=== PATIENT | male | born 1950 | race Caucasian/White ===

== ENCOUNTER 2016-11-17 22:21 | Emergency (ER) | payer MEDICARE, MEDICAID | END 2016-11-18 | disposition home or self-care (01) | LOC: D.ER 22:21 | DX: S01.81XA Laceration without foreign body of other part of head, initial encounter (principal); W45.8XXA Other foreign body or object entering through skin, initial encounter; Y93.89 Activity, other specified; Y92.019 Unspecified place in single-family (private) house as the place of occurrence of the external cause; M06.9 Rheumatoid arthritis, unspecified; J44.9 Chronic obstructive pulmonary disease, unspecified ==

== ENCOUNTER 2018-07-07 16:35 | Inpatient (IN) | payer MEDICARE ==
[~2018-07-07] VITALS: Ht 182.9 cm; Wt 84.1 kg
--- NOTE | ~2018-07-07 | OP ---
PATIENT NAME: WILLIS BLOCK MEDICAL RECORD: [id number] :50 LOCATION:[facility] ADMISSION DATE:07/07/18 SURGEON: JT PATEL MD DATE OF OPERATION: 07/07/2018 PROCEDURES: 1. PTCA stent LAD. 2. Left heart catheterization. 3. Selective coronary angiography. 4. Left ventriculogram. 5. Intraaortic balloon pump placement. INDICATION: Acute myocardial infarction, cardiogenic shock. PROCEDURE IN DETAIL: After informed consent was obtained and after a detailed description of the risks, benefits as well as alternative therapies, emergent decision was made to proceed with a cardiac intervention. FINDINGS: The left ventriculogram was performed in standard 30-degree BRAUN view, reveals anteroapical hypokinesis, ejection fraction 35% to 40%. SELECTIVE CORONARY ANGIOGRAPHY: 1. Left main is with no significant angiographic disease. 2. Left anterior descending is acutely totally occluded proximally. 3. Left circumflex has a relatively large first obtuse marginal that has 80-85% stenosis in the proximal vessel, otherwise the circumflex is free of disease. 4. Right coronary has no significant disease throughout. PTCA STENT OF THE LAD: The stents used were 3.5 x 30 and 3.0 x 30 both Integrity stents. Result was 0% residual stenosis, went from DAVID 0 flow to DAVID 2 flow. OVERALL IMPRESSION: Successful percutaneous transluminal coronary angioplasty stent of the left anterior descending for an acute myocardial infarction going from 100% initial stenosis to 0% residual stenosis at the end of the case due to the continued poor DAVID flow, intraaortic balloon pump counterpulsation was undertaken. This was positioned in the distal aorta. The balloon pumping was undertaken at 1:1. TRANSINT:[id number] Voice Confirmation ID: [id number] DOCUMENT ID: [id number] JT PATEL MD at 0923 CC: [id number] DICTATION DATE: 07/07/181800 MARBLE CLEANER: 07/07/181945 DIS IN 07/07/18 [facility] [address] [id number]
--- NOTE | ~2018-07-07 | HP ---
PATIENT: WILLIS BLOCK MEDICAL RECORD: [id number] ACCOUNT: [id number] LOCATION:[facility] : 50 ADMISSION DATE: 07/07/18 PCP: MIRLANDE IRAHETA HISTORY AND PHYSICAL EXAMINATION DIAGNOSES: 1. Cardiac arrest. 2. Acute anterior myocardial infarction. 3. Coronary disease. HISTORY: This is a gentleman who supposedly was at home, had chest pain, called 911. Paramedics arrived. He was diaphoretic but conscious, and within a minute, he had a VF arrest. He received one shock in the field along with CPR, was transported to the hospital. He had a second episode of VF arrest while in the Emergency Room, received one more shock. He is now on Levophed, bicarb drip, and lidocaine. He is in sinus rhythm. The EKG is compatible with an acute anterior myocardial infarction. PHYSICAL EXAMINATION: GENERAL APPEARANCE: Well-nourished, well-developed, appears stated age. Level of distress, comfortable. PSYCHIATRIC: Mental status, alert, normal affect. Orientation, oriented to time, place and person. EYES: Lids and conjunctiva, noninjected. No discharge, no pallor. ENT: Lips, teeth, gums, normal dentition. Oropharynx, no cyanosis, no pallor. NECK: Carotid arteries, bilateral normal upstroke, no bruits, no thrills. JUGULAR VEINS: No jugular venous pressure or distention. CERVICAL LYMPH NODES: Nontender, nonenlarged. THYROID: Not enlarged. Nontender. No nodules. LUNGS: Respiratory effort, unlabored. CHEST: Normal curvature. No thoracic deformity. No chest wall tenderness. Percussion, resonant. Auscultation, clear. No wheezes, no rales, no rhonchi. CARDIOVASCULAR: Precordial exam, nondisplaced. No heaves or pericardial thrills. Rate and rhythm, regular. Heart sounds, normal S1, normal S2. No S3, no gallop, no rub. Systolic murmur, not heard. Diastolic murmur, not heard. EXTREMITIES: No cyanosis, no edema. Peripheral pulses, full and equal in all extremities, except as noted. No bruits appreciated. ABDOMEN: Soft, nondistended. Normal aorta. No bruit. Nontender. No masses. Liver, nontender, no hepatomegaly. Spleen, nontender, no splenomegaly. MUSCULOSKELETAL: No joint tenderness. No joint swelling. No erythema. NEUROLOGICAL: Normal gait, normal strength, normal tone. SKIN: Warm and dry. OVERALL IMPRESSION: Acute anterior myocardial infarction with cardiac arrest. We will proceed with emergent coronary angiography. Further care depends upon findings of the angiography. TRANSINT:[id number] Voice Confirmation ID: [id number] DOCUMENT ID: [id number] HISTORY AND PHYSICAL [id number] WILLIS BLOCK JEFFREY MD at 0923 CC: [id number] DICTATION DATE: 07/07/18 173 MAIL OPENER: 07/07/18 175 DIS IN 07/07/18 [id number] [place] [address]
--- NOTE | ~2018-07-07 | HEMODYNAMI ---
PATIENT:WILLIS BLOCK MEDICAL RECORD: [id number] : 50 LOCATION:[facility] ADMISSION DATE: 07/07/18 Generatedon:07/07/201818:09 Patient name: WILLIS BLOCK Patient #: [id number] SSN: : 1950 Date of study: 07/07/2018 Page: Of Hemodynamic Procedure Report Patient Data Patient Demographics Procedure consent was obtained First Name: WILLIS Gender: Male Last Name: MCKAYLA : 1950 [facility] Initial: ANISH Age: 68 year(s) Patient #: [id number] Race: Unknown Additional ID: [id number] Contact details Address: [address] [place] [address] State: [place] [facility] [place] code: [address] Admission Admission Data Admission Date: 07/07/2018 Admission Time: 16:35 Procedure Procedure Types Cath Procedure Diagnostic Procedure LHC LHC w/Coronaries Intra-Aortic Balloon Pump Sedation Charges Moderate Sedation up to 15 minutes PCI Procedure AMI/SVG/DIRECTOR CHILD ABUSE THERAPY PTCA or Stent AMI-BMS/CATRACHITO Initial Procedure Description Procedure Date Procedure Date: 07/07/2018 Procedure Start Time: 17:32 Procedure End Time: 18:00 Procedure Staff Name Function Dionne Hanna RT Monitor Leslie Polanco RT Scrub Malik Berger RN Nurse Jazmyne Callahan RN Nurse Baljit Reyes MD Performing Physician Procedure Data Cath Procedure Fluoroscopy Diagnostic fluoroscopy Total fluoroscopy Time: 3.5 time: 3.5 min min Diagnostic fluoroscopy Total fluoroscopy dose: 818 dose: 818 mGy mGy Contrast Material Contrast Material Type Amount (ml) Isovue 300 98 Entry Location Entry Primary Successful Side Size Upsize Upsize Entry Closure Succes sful Closure Location (Fr) 1 (Fr) 2 (Fr) Remarks Device Remarks Femoral Right 6 Fr 7 Fr artery Short Short Estimated blood loss: 5 ml Diagnostic catheters Device Type Used For End Catheter Placement MULTIPACK 3DRC 5Fr Right Coronary catheter Angiography MULTIPACK Pigtail 5 Fr LV Angiography catheter Procedure Complications No complications Procedure Medications Medication Administration Route Dosage Oxygen 16 Lidocaine 2% added to field 20 Heparin Flush Bag added to field 2 bags (1000units/500ml NS) Levophed (8mg/250ml I.V. drip 8 mcg/min D5W) Heparin Bolus I.V. 5000 units Integrilin (Bolus I.V. 7.3 ml 2mg/ml) Integrilin (Bolus 7.3 ml 2mg/ml) Sodium Bicarbonate I.V. drip 150 Drip (3amps/1LD5W) Integrilin Drip I.V. drip 13 ml/hr (75mg/100ml) Levophed (8mg/250ml I.V. drip 16 D5W) unlisted medication I.V. drip 4 mg/min Heparin Drip I.V. drip 1000 units/hr (09866cypsb/250 D5W) Lopressor I.V. 5 mg Hemodynamics Rest Heart Rate: 42 (bpm) Snapshots Pre Cath Intra NCS Post Cath Vital Signs Time Heart Resp SPO2 etCO2 NIBP Rhythm Pain Sedation Rate (ipm) (%) (mmHg) (mmHg) Status Level (bpm) 17:30:33 122 19 98 0 98/77(86) NSR 0 (11) 3(A) , No pain 17:35:07 115 24 96 0 101/73(87) NSR 0 (11) 3(A) , No pain 17:39:42 119 16 96 0 87/62(72) NSR 0 (11) 3(A) , No pain 17:44:16 119 11 96 0 85/60(66) NSR 0 (11) 3(A) , No pain 17:48:55 104 25 91 0 55/32(47) NSR 0 (11) 3(A) , No pain 17:53:54 121 23 92 0 Measuring NSR 0 (11) 3(A) , No pain 17:54:08 121 22 91 0 80/42(61) NSR 0 (11) 3(A) , No pain 17:58:20 89 25 93 0 Aborted NSR 0 (11) 3(A) , No pain 18:01:47 90 25 95 0 81/39(56) NSR 0 (11) 3(A) , No pain Medications Time Medication Route Dose Verified Delivered Reason N otes Effectiveness by by 17:29:55 Oxygen ET 16 Hiram Buffba Per physician tube l/min-100% St Placido Berger RN, MD 17:30:05 Lidocaine 2% added 20ml vial Hiram Buffie for local to [facility] Placido Berger RN anesthetic field ARREAGA 17:30:18 Lidocaine I.V. 4 mg/min Hiram Gan Per physician 2G/500ml drip St Placido Berger RN, MD 17:30:36 Heparin Flush added 2 bags Hiram Gan used for Bag to St Placido Berger RN procedure (1000units/500ml field ARREAGA NS) 17:32:01 Levophed I.V. 8 mcg/min Hiram Jaimesie Per physician (8mg/250ml D5W) drip St Placido Berger RN, MD 17:35:41 Heparin Bolus I.V. 5000 units [address] [facility] Placido Berger RN anticoagulation 17:37:41 Integrilin I.V. 7.3 ml Hiram Gan for (Bolus 2mg/ml) St Placido Berger RN antiplatelet MD therapy 17:37:53 Integrilin I.C 7.3 ml Hiram Gan for (Bolus 2mg/ml) St Placido Berger RN antiplatelet MD therapy 17:38:34 Sodium I.V. 150 ml\hr Hiram Gan Per physician Bicarbonate Drip drip St Placido Berger RN (3amps/1LD5W) 17:43:01 Integrilin Drip I.V. 13 ml/hr Hiram Gan for (75mg/100ml) drip St Placido Berger RN antiplatelet MD therapy 17:55:53 Lopressor I.V. 5 mg Baljit Gan Per physician Hannah Berger RN 17:59:05 Levophed I.V. 16 mcg/min Hiram Gan Per physician (8mg/250ml D5W) drip ml/hr St Placido Berger RN, MD 18:00:36 Heparin Drip I.V. 1000 Baljitjoe Gan Per physician v erified (88558ghkio/250 drip units/hr Hannah Berger RN with dr D5W) hannah Procedure Log Time Note 17:18:48 Informed consent obtained and on chart 17:19:16 Malik Berger RN sent for patient. Start room use. 17:19:17 Time tracking: Regular hours (M-F 7:00 - 5:00) 17:19:24 Plan of Care:Hemodynamics will remain stable., Cardiac rhythm will remain stable., Comfort level will be maintained., Respiratory function will remain adequate., Patient/ family verbilizes understanding of procedure., Procedure tolerated without complication., Recovers from procedure without complications.. 17:23:19 Patient received from ED to CCL 1 Alert and oriented. Tansferred to table in Supine position. 17:23:20 Warm blankets applied, and barbi hugger turned on for patient comfort. 17:23:21 Correct patient and procedure confirmed by team. 17:23:21 ECG and BP/O2 sat monitors applied to patient. 17:28:30 patient arrived from er on vent ; still has femoral pulse on table 17:29:42 Vital chart was started 17:29:43 Baseline sample Acquired. 17:29:46 Full Disclosure recording started 17:29:50 H&P Date Dictated: 07/07/2018 ER History on chart.. 17:29:52 Pre-procedure instructions explained to patient. 17:29:53 Pre-op teaching completed and patient verbalized understanding. 17:29:55 Oxygen 16 l/min-100% ET tube was administered by Malik Berger RN; Per physician; 17:30:05 Lidocaine 2% 20ml vial added to field was administered by Malik Berger RN; for local anesthetic; 17:30:18 Lidocaine 2G/500ml 4 mg/min I.V. drip was administered by Malik Berger RN; Per physician; 17:30:36 Heparin Flush Bag (1000units/500ml NS) 2 bags added to field was administered by Malik Berger RN; used for procedure; 17:31:13 Family in waiting room. 17:31:15 Patient NPO since Midnight. 17:31:16 Is the patient allergic to Iodine/contrast media? No. 17:31:18 Was the patient premedicated? No 17:31:31 Is patient on blood thinner?Unknown 17:31:39 Patient diabetic? Unknown. 17:31:42 Previous problem with sedation/anesthesia? Unknown ? 17:31:44 Snore? Unknown 17:31:45 Sleep apnea? Unknown 17:31:46 Deviated septum? Unknown 17:31:48 Opens mouth fully? Unknown 17:31:49 Sticks out tongue? Unknown 17:31:52 Airway obstruction? Unknown ? 17:31:55 Dentures? Unknown ? 17:32:01 Levophed (8mg/250ml D5W) 8 mcg/min I.V. drip was administered by Malik Berger RN; Per physician; 17:32:01 Pre procedure: right femoral pulse 1+ Palpable, but thready & weak; easily obliterated 17:32:07 IV patent on arrival in right antecubital with 0.9% NaCl at O. 17:32:09 Lab results completed and on chart. 17:32:11 Alarms reviewed by R. N. 17:32:12 Sharps counted by scrub and verified by R.N. 17:32:15 Right groin area was prepped with chlora-prep and draped in sterile fashion 17:32:16 Physician arrived 17:32:17 --------ALL STOP TIME OUT------ 17:32:17 Final Timeout: patient, procedure, and site verified with staff and physician. All members of the team are in agreement. 17:32:19 Right groin site verified by team. 17:32:32 Physical assessment completed. ASA score P 5 - A moribund patient who is not expected to survive without the operation as per Baljit Reyes MD. 17:32:40 Sedation plan: IV Moderate Sedation Medication:Versed, Fentanyl 17:32:43 Use device set Femoral Dx 17:32:44 ACIST Syringe (09222) opened to sterile field. 17:32:45 Bag Decanter () opened to sterile field. 17:32:45 Medline Cath Pack ([id number]) opened to sterile field. 17:32:45 DIAGNOSTIC WIRE .035 260cm J wire (578100) opened to sterile field. 17:32:47 ACIST Hand Control (37631) opened to sterile field. 17:32:47 ACIST Manifold (79671) opened to sterile field. 17:32:48 DIAGNOSTIC Multipack 5Fr catheter set (OA2021) opened to sterile field. 17:32:48 Tegaderm 4 x 4 (1626W) opened to sterile field. 17:32:53 Procedure started. 17:32:57 Local anesthetic to right femoral artery with Lidocaine 2% by Baljit Reyes MD.INITIAL ACCESS ONLY 17:34:20 SHEATH Prelude 6Fr 0.035 (ZQB-0K-49-035) opened to sterile field. 17:34:31 A 6 Fr Short sheath was inserted into the Right Femoral artery 17:34:54 GUIDE 6FR XBLAD 3.5 catheter ([id number]) opened to sterile field. 17:35:10 6 Fr xblad 3.5 guide catheter was inserted over the wire 17:35:15 LCA angiography performed. 17:35:17 Injector settings: Ml/sec: 3, Volume: 6, 17:35:41 Heparin Bolus 5000 units I.V. was administered by Malik Berger RN; for anticoagulation; 17:35:54 CHOICE PT Extra Support 182cm wire ([id number]) opened to sterile field. 17:35:55 INFLATOR Merit BasixCompak (CA2870) opened to sterile field. 17:36:12 choice pt wire advanced. 17:36:14 Wire advanced across lesion. 17:37:09 Inflate balloon Inflation number: 1 A EUPHORA 3.0 x 20 Balloon ([id number]) was prepped and advanced across the Prox LAD, then inflated to 13 HAVEN for 0:10 (min:sec). 17:37:41 Integrilin (Bolus 2mg/ml) 7.3 ml I.V. was administered by Malik Berger RN; for antiplatelet therapy; 17:37:53 Integrilin (Bolus 2mg/ml) 7.3 ml I.C was administered by Malik Berger RN; for antiplatelet therapy; 17:38:34 Sodium Bicarbonate Drip (3amps/1LD5W) 150 ml\hr I.V. drip was administered by Malik Berger RN; Per physician; 17:39:00 Balloon removed over the wire. 17:39:59 Place stent Inflation Number: 2 A INTEGRITY RX 3.5 x 30 stent ([id number]) was prepped and advanced across the Prox LAD. The stent was deployed at 0 HAVEN for 0:10 (min:sec). 17:41:10 Stent catheter was removed intact over wire. 17:41:43 Place stent Inflation Number: 1 A INTEGRITY RX 3.0 x 30 stent ([id number]) was prepped and advanced across the Mid LAD. The stent was deployed at 13 HAVEN for 0:10 (min:sec). 17:43:01 Integrilin Drip (75mg/100ml) 13 ml/hr I.V. drip was administered by Malik Berger RN; for antiplatelet therapy; 17:43:40 Stent catheter was removed intact over wire. 17:43:41 Wire removed. 17:43:42 Guide catheter removed. 17:43:57 A MULTIPACK 3DRC 5Fr catheter was advanced over the wire and used for Right Coronary Angiography. 17:44:36 SHEATH 7FR Morrison (OMD877) opened to sterile field. 17:44:46 RCA angiography performed. 17:44:50 Injector settings: Ml/sec: 3, Volume: 6, 17:44:54 Catheter removed. 17:45:16 IABP 40cm balloon catheter ([id number]) opened to sterile field. 17:45:58 A MULTIPACK Pigtail 5 Fr catheter was advanced over the wire and used for LV Angiography. 17:46:08 EF : 40 % 17:46:12 LV gram done using BRAUN 17:46:15 Injector settings: Ml/sec: 5, Volume: 15, 17:47:03 Sheath upsized to a 7 Fr Short. 17:47:10 40cc IABP inserted into the RFA . 17:47:12 Augmentation: 1:1 per physician. 17:48:28 2-0 Silk 685H opened to sterile field. 17:48:30 2-0 Silk 685H opened to sterile field. 17:54:44 balloon pump sutured in 17:54:58 Procedure ended.(Physican Out) 17:55:20 Fluoroscopy time 03.50 minutes. 17:55:53 Lopressor 5 mg I.V. was administered by Malik Berger RN; Per physician; 17:56:27 Fluoroscopy dose: 818 mGy 17:56:27 Flurop Dose total: 818 17:56:32 Contrast amount:Isovue 300 98ml. 17:56:33 Sharps counted by scrub and verified by R.N. 17:59:05 Levophed (8mg/250ml D5W) 16 mcg/min ml/hr I.V. drip was administered by Malik Berger RN; Per physician; 17:59:05 Post right femoral artery:stable 17:59:17 Estimated blood loss: 5 ml 17:59:57 Procedure type changed to Cath procedure, Diagnostic procedure, LHC, LHC w/Coronaries, Intra-Aortic Balloon Pump, Sedation Charges, Moderate Sedation up to 15 minutes, PCI procedure, AMI/SVG/DIRECTOR CHILD ABUSE THERAPY PTCA or Stent, AMI-BMS/CATRACHITO Initial 17:59:57 Procedure and supply charges have been captured, reviewed, submitted and are correct. 18:00:02 Procedure Complication : No complications 18:00:05 Vital chart was stopped 18:00:05 See physician's report for complete and final results. 18:00:08 Report given to CVICU. 18:00:11 Patient transfered to CVICU with Stretcher. 18:00:13 Procedure ended. 18:00:13 Full Disclosure recording stopped 18:00:19 ACC-PCI Only Patient was given prescriptions, or instructed by Baljit Reyes MD to start/continue the following medications upon discharge: Plavix 18:00:21 End room use (Document Last) 18:00:36 Heparin Drip (88316cwquu/250 D5W) 1000 units/hr I.V. drip was administered by Malik Berger RN; Per physician; verified with dr reyes Intervention Summary Intervention Notes Time ActionType Lesion and Equipment Action# Pressure Duration Attributes Used 17:37:09 Inflate Prox LAD EUPHORA 3.0 1 13 00:10 balloon x 20 Balloon ([id number]) 17:39:59 Place stent Prox LAD INTEGRITY RX 2 0 00:10 3.5 x 30 stent ([id number]) 17:41:43 Place stent Mid LAD INTEGRITY RX 1 13 00:10 3.0 x 30 stent ([id number]) Device Usage Item Name Manufacture Quantity Catalog Number [facility] nt Minimal Lot# / Charge Number Stock Stock Serial# Code ACIST Syringe Acist 1 63370 724913 512843 61504 2 20 (71761) [employer] Inc Bag Decanter Microtek 1 2001S 417421 52355 76092 5 5 () Medical Inc. Medline Cath Cardinal 1 [id number] 174334 43135 09916 [address] ([id number]) DIAGNOSTIC WIRE St Dominic 1 997468 207197 993482 68931 3 30 .035 260cm J wire (194281) ACIST Hand Acist 1 84991 692748 456999 28913 6 5 Control (48981) [employer] Inc ACIST Manifold Acist 1 63692 836193 259928 60316 3 5 (29981) Medical Systems Inc DIAGNOSTIC Cardinal 1 QU3137 969712 67575 50557 6 30 Multipack 5Fr Health catheter set (LZ7449) Tegaderm 4 x 4 3M 1 1626W 312242 924777 60952 9 5 (1626W) SHEATH Prelude Merit 1 CNH-7O-83-35 254495 8111123 14826 8 5 6Fr 0.035 Medical (MSK-4G-65-035) GUIDE 6FR XBLAD Cardinal 1 [id number] 912310 258546 26258 6 10 3.5 catheter Health ([id number]) CHOICE PT Extra [place] 1 [id number] 990038 553288 15184 0 5 Support 182cm Scientific wire ([id number]) INFLATOR Merit Merit 1 GZ9898 787092 910536 91621 6 15 InExchange Medical (UX2193) EUPHORA 3.0 x Medtronic 1 [id number] 688208 012023 50472 1 5 [id number] 20 Balloon ([id number]) INTEGRITY RX Medtronic 1 [id number] 289187 590326 34357 4 5 [id number] 3.5 x 30 stent ([id number]) INTEGRITY RX Medtronic 1 [id number] 484674 093916 08248 5 5 [id number] 3.0 x 30 stent ([id number]) MULTIPACK 3DRC Cardinal 1 33684 0 5 5Fr catheter Health SHEATH 7FR Terumo 1 [id number] 396400 155163 91763 2 5 Morrison ([id number]) IABP 40cm [facility] 1 [id number] 825957 389698 75475 5 1 balloon [employer]otechnics [facility] catheter (057050) ([id number]) MULTIPACK Cardinal 1 62625 4 5 Pigtail 5 Fr Health catheter 2-0 Silk 685H Ethicon 2 685H 955618 05325 38651 0 5 Signature Audit [place] Stage Time Signature Unsigned Intra-Procedure 07/07/2018 Dionne Hanna 6:09:23 PM RT(R) Signatures Monitor : Dionne Hanna RT Signature : Date : Time : [address] [place] [address]
[2018-07-07 16:59] VITALS: Ht 182.9 cm; Wt 84.1 kg
[2018-07-07 17:19] LABS: HEMATOCRIT 44.5 % (42.0-54.0); HEMOGLOBIN 14.4 g/dL (13.5-17.5); MCH 32.9 pg (26.0-34.0); MCHC 32.4 g/dL (31.0-37.0); MCV 101.6 fL (80.0-100.0); MEAN PLATELET VOLUME 13.4 fL (7.4-10.4); PLATELET COUNT 66 10x3/uL (130-400); RBC 4.38 10x6/uL (4.20-6.10); RDW 13.9 % (11.5-14.5); WBC 15.6 10x3/uL (4.8-10.8)
[2018-07-07 17:25] LABS: APPEARANCE CLEAR (CLEAR); BILIRUBIN NEGATIVE (NEGATIVE); COLOR YELLOW (YELLOW); GLUCOSE NEGATIVE (NEGATIVE); KETONE NEGATIVE (NEGATIVE); NITRITE NEGATIVE (NEGATIVE); PROTEIN NEGATIVE (NEGATIVE); SPECIFIC GRAVITY 1.015 (1.005-1.020); UROBILINOGEN NORMAL (NORMAL)
[2018-07-07 17:36] LABS: ALBUMIN 2.6 g/dL (3.4-5.0); ALKALINE PHOSPHATASE 102 U/L (46-116); ALT (SGPT) 71 U/L (10-68); BILIRUBIN - TOTAL 0.57 mg/dL (0.2-1.3); CALC OSMOLALITY 289 mosm/kg (275-300); CALCIUM 8.6 mg/dL (8.5-10.1); CARBON DIOXIDE 23.4 mmol/L (21.0-32.0); CHLORIDE - SERUM 109 mmol/L (98-107); CREATININE - SERUM 1.3 mg/dL (0.6-1.3); GLUCOSE 158 mg/dL (74-106); PROTEIN - SERUM 5.2 g/dL (6.4-8.2); SODIUM 144 mmol/L (136-145); UREA NITROGEN 13 mg/dL (7-18); eGFR NON AFRICAN AMERICAN 58 mL/min (90-120)
[2018-07-07 17:50] LABS: LYMPHOCYTES 82 % (15-50); MONOCYTES 2 % (2-11); NEUTROPHILS 14 % (40-80)
[2018-07-07 17:51] LABS: CKMB 4.7 U/L (0.0-3.6); CREATINE KINASE 313 UL (21-232); PLATELET ESTIMATE DECREASED; PRO BNP 270 pg/mL (0-125)
[2018-07-07 17:53] LABS: TROPONIN-I 0.161 ng/mL (0.000-0.060)
== END 2018-07-07 19:11 | DRG 270 ==
LOC: D.ER → EDBD 16:35 → D.ER 16:35 → D.OPS 16:35 → EDSTATUS 17:13 → D.CVICU 18:29
PROVIDERS: Family Medicine; Internal Medicine Interventional Cardiology
PROC: B2151ZZ Fluoroscopy of Left Heart using Low Osmolar Contrast (ICD-10-PCS; 2018-07-07)
PROC: 4A023N7 Measurement of Cardiac Sampling and Pressure, Left Heart, Percutaneous Approach (ICD-10-PCS; 2018-07-07)
PROC: 02703EZ Dilation of Coronary Artery, One Artery with Two Intraluminal Devices, Percutaneous Approach (ICD-10-PCS; principal; 2018-07-07 17:19)
PROC: 5A02210 Assistance with Cardiac Output using Balloon Pump, Continuous (ICD-10-PCS; 2018-07-07 17:19)
PROC: B2111ZZ Fluoroscopy of Multiple Coronary Arteries using Low Osmolar Contrast (ICD-10-PCS; 2018-07-07 17:19)
DX: I21.09 ST elevation (STEMI) myocardial infarction involving other coronary artery of anterior wall (principal); R40.2312 Coma scale, best motor response, none, at arrival to emergency department; R40.2112 Coma scale, eyes open, never, at arrival to emergency department; R40.2212 Coma scale, best verbal response, none, at arrival to emergency department; J18.9 Pneumonia, unspecified organism; R57.0 Cardiogenic shock; I46.2 Cardiac arrest due to underlying cardiac condition